=== PATIENT | female | born 1975 | race Caucasian/White ===

== ENCOUNTER → 2017-01-22 | Outpatient (CLI) | payer MEDICARE, SELFPAY ==
[2017-01-22 12:56] LABS: CHLORIDE,CL 109 mmol/L (98-110); SODIUM,NA 142 mmol/L (136-146)
== END ==
LOC: MW.CHFP 11:10
PROVIDERS: ATTEND Emergency Medicine
DX: R00.2 Palpitations (principal)
CPT/HCPCS: 36415; 80048; 84443; 85027; 93005; 93225; G0463

== ENCOUNTER 2017-02-18 14:56 | Emergency (ER) | payer MEDICARE, SELFPAY ==
--- NOTE | 2017-02-18 15:10 | EDM.PDOC ---
ED HPI NEURO - General Chief Complaint: Neurological Problem Stated Complaint: FALL Time Seen by Provider: 02/18/17 14:59 - History of Present Illness INITIAL COMMENTS - FREE TEXT/NARRATIVE: History of present illness: [41-year-old female with history of Arnold chiari syndrome states she fell on her head while walking 3 days ago. She felt lightheaded. She has headache and neck pain where she took motrin without relief. she has nausea and vomiting x 1 with blurry vision. She did not lose consciousness. She denies numbness, tingling, parasthesia, fever, chills, diarrhea, dysuria, frequency, urgecy, urine or bladder incontinence. ] Review of systems: As per history of present illness and below otherwise all systems reviewed and negative. Past medical history: As per history of present illness and as reviewed below otherwise noncontributory. Surgical history: As per history of present illness and as reviewed below otherwise noncontributory. Social history: No reported history of drug or alcohol abuse. Family history: As per history of present illness and as reviewed below otherwise noncontributory. Physical exam: General: Well developed, well nourished in NAD HEENT: Atraumatic, normocephalic, pupils reactive, negative for conjunctival pallor or scleral icterus, mucous membranes moist, throat clear, neck supple, nontender, trachea midline. Lungs: Clear to auscultation, breath sounds equal bilaterally, chest nontender. Heart: S1S2, regular, negative for clicks, rubs, or JVD. Abdomen: Soft, nondistended, nontender. Negative for masses or hepatosplenomegaly. Negative for costovertebral tenderness. Pelvis: Stable nontender. Genitourinary: Deferred. Rectal: Deferred. Extremities: Atraumatic, negative for cords or calf pain. Neurovascular unremarkable. Neuro: Awake, alert, oriented. Cranial nerves II through XII unremarkable. Cerebellum unremarkable. Motor and sensory unremarkable throughout. Exam nonfocal. Diagnostics: [Head and neck CT without contrast] Therapeutics: [Toradol IM] Impression: [Head/neck strain/sprain] Plan: [continue motrin advised to rest and have son monitor her. Return to ED if no improvement ] Definitive disposition and diagnosis as appropriate pending reevaluation and review of above. - Related Data Allergies/ADRs: Allergies Allergy/AdvReac Type Severity Reaction Status Date / Time No Known Allergies Allergy Verified 02/18/17 15:09 Home Meds: Home Meds Ondansetron [Zofran ODT] 4 mg PO Q6H PRN #20 tab.dis 03/28/15 [Rx] Gabapentin [Neurontin] 2 cap PO BEDTIME 01/31/16 [History] hydrOXYzine HCl [Atarax] 1 tab PO TID 01/31/16 [History] oxyCODONE HCl [Oxycodone HCl] 0.5 - 1 tab PO Q6H PRN 01/31/16 [History] Orphenadrine [Norflex] 1 tab PO TID PRN 02/18/17 [History] Past Medical History HEENT History: Reports: None Cardiovascular History: Reports: Arrhythmia Other Cardiovascular History: hx of arrythmia after feeding tube insertion Respiratory History: Reports: None Gastrointestinal History: Reports: GERD Genitourinary History: Reports: None 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: Musculoskeletal History: Reports: Back pain, chronic Other Musculoskeletal History: being checked for Fibromyalgia Neurological History: Reports: Migraines Psychiatric History: Reports: Anxiety, Depression Endocrine/Metabolic History: Reports: None Hematologic History: Reports: None Immunologic History: Reports: None Oncologic (Cancer) History: Reports: None Dermatologic History: Reports: None - Infectious Disease History Infectious Disease History: Reports: None - Past Surgical History Head Surgeries/Procedures: Reports: None HEENT Surgical History: Reports: None Cardiovascular Surgical History: Reports: None Respiratory Surgical History: Reports: None GI Surgical History: Reports: Bariatric procedure, Cholecystectomy, EGD, Esophageal dilatation, Other (see below) Other GI Surgeries/Procedures: Exploratory Laparotomy, feeding tube inserted, feeding tube removed Female Surgical History: Reports: section, Hysterectomy, Tubal ligation Endocrine Surgical History: Reports: None Neurological Surgical History: Reports: None Musculoskeletal Surgical History: Reports: Arthroscopic knee, Carpal tunnel Oncologic Surgical History: Reports: None Dermatological Surgical History: Reports: None Social & Family History - Tobacco Use Smoking Status *Q: Never Smoker Second Hand Smoke Exposure: No - Alcohol Use Days Per Week of Alcohol Use: 0 - Recreational Drug Use Recreational Drug Use: No Drug Use in Last 12 Months: No ED ROS GENERAL - Review of Systems Review Of Systems: See Below (See history of present illness) ED EXAM, NEURO - Physical Exam Exam: See Below (See history of present illness) Course - Vital Signs Last Recorded V/S: Last Vital Signs Temp 99.2 F 02/18/17 15:07 Pulse 87 02/18/17 15:07 Resp 16 02/18/17 15:07 BP 124/58 L 02/18/17 15:07 Pulse Ox 97 02/18/17 15:07 - Orders/Labs/Meds Meds: Medications Discontinued Medications Generic Name Dose Route Start Last Admin Trade Name Shey PRN Reason Stop Dose Admin Ketorolac Tromethamine 30 mg 02/18/17 16:16 Toradol IM 02/18/17 16:17 ONETIME ONE Ondansetron HCl 4 mg 02/18/17 15:18 02/18/17 15:26 Zofran Odt PO 02/18/17 15:19 4 mg ONETIME ONE Administration Departure - Departure Time of Disposition: 16:19 Disposition: Home, Self-Care 01 Condition: good Clinical Impression: Fall Referrals: PCP,None [Primary Care Provider] - Forms: ED Department Discharge Additional Instructions: The following information is given to patients seen in the emergency department who are being discharged to home. This information is to outline your options for follow-up care. We provide all patients seen in our emergency department with a follow-up referral. The need for follow-up, as well as the timing and circumstances, are variable depending upon the specifics of your emergency department visit. If you don't have a primary care physician on staff, we will provide you with a referral. We always advise you to contact your personal physician following an emergency department visit to inform them of the circumstance of the visit and for follow-up with them and/or the need for any referrals to a consulting specialist. The emergency department will also refer you to a specialist when appropriate. This referral assures that you have the opportunity for follow-up care with a specialist. All of these measure are taken in an effort to provide you with optimal care, which includes your follow-up. Under all circumstances we always encourage you to contact your private physician who remains a resource for coordinating your care. When calling for follow-up care, please make the office aware that this follow-up is from your recent emergency room visit. If for any reason you are refused follow-up, please contact the [facility] Emergency Department at and asked to speak to the emergency department charge nurse.
[2017-02-18] MEDS ORDERED: Ondansetron 4 MG Tab.DIS PO ONE (15:18)
--- NOTE | 2017-02-18 16:11 | CT ---
EXAMINATION: CT cervical spine HISTORY: Fall COMPARISON: Radiographs dated 09/02/2016 TECHNIQUE: Axial CT images obtained through the cervical spine without contrast. Coronal and sagitta l reconstructions obtained. FINDINGS: The cervical spinal alignment is normal. The vertebral body heights and disc spaces appear well-maintained. Bone mineralization is normal. The paravertebral soft tissues are unremarkable. Annabelle ng apices are clear. IMPRESSION: No acute cervical spinal abnormality identified.
--- NOTE | 2017-02-18 16:13 | CT ---
EXAMINATION: Non contrast CT head. Coronal and sagittal reformats. HISTORY: Pain FINDINGS: No evidence of intra or extra axial hemorrhage, mass, midline shift, hydrocephalus or edema. No hypoattenuation changes in the major vascular territories to suggest acute infarct. No abnormal intracranial calcifications are detected. No evidence of substantial vascular calcifica tions. Paranasal sinuses and mastoid air cells are well aerated without substantial findings. The orbits a nd globes appear normal. Pituitary fossa appears unremarkable. Calvarium is intact. No evidence of skull fracture. IMPRESSION: No acute intracranial findings.
[2017-02-18] MEDS ORDERED: Ketorolac 30 MG/ML SDV IM ONE (16:16)
[2017-02-18 17:02] VITALS: BP 121/72
== END 2017-02-18 16:59 | disposition home or self-care (01) ==
LOC: MW.ED 14:56
DX: S16.1XXA Strain of muscle, fascia and tendon at neck level, initial encounter (principal); S09.11XA Strain of muscle and tendon of head, initial encounter; S13.9XXA Sprain of joints and ligaments of unspecified parts of neck, initial encounter; S03.9XXA Sprain of joints and ligaments of unspecified parts of head, initial encounter; K21.9 Gastro-esophageal reflux disease without esophagitis; F41.8 Other specified anxiety disorders; Z90.49 Acquired absence of other specified parts of digestive tract; Z98.890 Other specified postprocedural states; Z98.84 Bariatric surgery status; Z90.710 Acquired absence of both cervix and uterus; W19.XXXA Unspecified fall, initial encounter; Q07.00 Arnold-Chiari syndrome without spina bifida or hydrocephalus
CPT/HCPCS: 70450; 72125; 96372; 99284; A9270; J1885; 99283

== ENCOUNTER → 2017-03-02 | Outpatient (CLI) | payer MEDICARE, SELFPAY ==
[2017-03-02 16:54] LABS: CHLORIDE,CL 107 mmol/L (98-110); SODIUM,NA 141 mmol/L (136-146)
== END ==
LOC: MW.CHIM 16:12
PROVIDERS: ATTEND Internal Medicine
DX: R19.8 Other specified symptoms and signs involving the digestive system and abdomen (principal); K92.0 Hematemesis; F19.90 Other psychoactive substance use, unspecified, uncomplicated; G44.309 Post-traumatic headache, unspecified, not intractable
CPT/HCPCS: 36415; 80053; 83540; 85025; 85652; 86140; 99214

== ENCOUNTER → 2017-03-05 | Outpatient (CLI) | payer MEDICARE, MEDICAID, SELFPAY ==
--- NOTE | 2017-03-05 11:15 | US ---
EXAMINATION: Limited abdominal ultrasound HISTORY: Also the left lower abdomen COMPARISON: CT dated 05/20/2016 TECHNIQUE: Grayscale and color Doppler images obtained of the aorta and left lower quadrant. FINDINGS: The aorta is normal in caliber measuring 1.6 cm proximally, 1.7 cm at the midpoint, and 1. 5 cm distally. The iliac arteries measure between 7 and 9 mm. Normal color Doppler flow with scatter ed atheromatous disease is noted within the aorta. No sonographic abnormalities noted within the are a of concern. IMPRESSION: 1. No evidence of an abdominal aortic aneurysm.
== END ==
LOC: MW.US 09:05
PROVIDERS: ATTEND Internal Medicine
DX: R19.8 Other specified symptoms and signs involving the digestive system and abdomen (principal)
CPT/HCPCS: 76700-26; 76775; 76775-26

== ENCOUNTER → 2017-03-09 | Outpatient (CLI) | payer MEDICARE, MEDICAID | LOC: MW.CHIM 08:00 | PROVIDERS: ATTEND Internal Medicine | DX: R10.9 Unspecified abdominal pain (principal); G89.29 Other chronic pain; G44.309 Post-traumatic headache, unspecified, not intractable; G93.5 Compression of brain | CPT/HCPCS: G0463 ==

== ENCOUNTER → 2017-03-20 | Outpatient (CLI) | payer MEDICARE, SELFPAY | LOC: MW.CHGS 08:00 | PROVIDERS: ATTEND Surgery | DX: R10.9 Unspecified abdominal pain (principal); G89.29 Other chronic pain; Z98.84 Bariatric surgery status | CPT/HCPCS: 99214 ==

== ENCOUNTER → 2017-03-30 | Outpatient (CLI) | payer MEDICARE, SELFPAY | LOC: MW.CHFP 08:00 | PROVIDERS: ATTEND Emergency Medicine | DX: H81.90 Unspecified disorder of vestibular function, unspecified ear (principal); R42 Dizziness and giddiness | CPT/HCPCS: G0463 ==

== ENCOUNTER → 2017-03-31 | Outpatient (CLI) | payer MEDICARE, MEDICAID, OTHER | LOC: MW.CHNEURO 08:00 | PROVIDERS: ATTEND Psychiatry & Neurology Neuromuscular Medicine | DX: G43.719 Chronic migraine without aura, intractable, without status migrainosus (principal); G93.5 Compression of brain; M54.2 Cervicalgia | CPT/HCPCS: 99214 ==

== ENCOUNTER 2017-09-28 21:34 | Emergency (ER) | payer MEDICARE, MEDICAID ==
--- NOTE | 2017-09-28 21:51 | EDM.PDOC ---
<Jayjay Barnett - Last Filed: 09/28/17 22:59> ED HPI GENERAL MEDICAL PROBLEM - General Chief Complaint: Neuro Symptoms/Deficits Stated Complaint: AMBULANCE Time Seen by Provider: 09/28/17 21:43 - History of Present Illness INITIAL COMMENTS - FREE TEXT/NARRATIVE: Labs were unremarkable CT shows no changes in her prior Chiari I malformation ventricles are without enlargement or any other significant changes I discussed with patient admission for observation in light of her symptoms and presentation patient declines she states she will follow-up primary medical doctor return as needed as discussed or any problems impression is #1 generalized weakness #2 history of Arnold-Chiari malformation #3 palpitations - Related Data Allergies Allergy/AdvReac Type Severity Reaction Status Date / Time No Known Allergies Allergy Verified 09/28/17 21:47 Home Meds: Home Meds Ondansetron [Zofran ODT] 4 mg PO Q6H PRN #20 tab.dis 03/28/15 [Rx] Gabapentin [Neurontin] 2 cap PO BEDTIME 01/31/16 [History] hydrOXYzine HCl [Atarax] 25 mg PO TID 01/31/16 [History] oxyCODONE HCl [Oxycodone HCl] 0.5 - 1 tab PO Q6H PRN 01/31/16 [History] Course - Vital Signs Last Recorded V/S: Last Vital Signs Temp 37.1 C 09/28/17 21:39 Pulse 62 09/28/17 23:10 Resp 18 09/28/17 23:10 BP 114/45 L 09/28/17 23:10 Pulse Ox 97 09/28/17 23:10 - Orders/Labs/Meds Labs: Laboratory Tests 09/28/17 09/28/17 Range/Units 21:48 21:48 WBC 8.52 (4.0-11.0) K/uL RBC 4.43 (4.30-5.90) M/uL Hgb 12.9 (12.0-16.0) g/dL Hct 37.4 (36.0-46.0) % MCV 84.4 (80.0-98.0) fL MCH 29.1 (27.0-32.0) pg MCHC 34.5 (31.0-37.0) g/dL RDW Std Deviation 39.1 (28.0-62.0) fl RDW Coeff of Jose Juan 13 (11.0-15.0) % Plt Count 297 (150-400) K/uL MPV 9.30 (7.40-12.00) fL Neut % (Auto) 50.8 (48.0-80.0) % Lymph % (Auto) 38.8 (16.0-40.0) % [place] % (Auto) 8.0 (0.0-15.0) % Eos % (Auto) 1.9 (0.0-7.0) % Baso % (Auto) 0.5 (0.0-1.5) % Neut # (Auto) 4.3 (1.4-5.7) K/uL Lymph # (Auto) 3.3 H (0.6-2.4) K/uL [place] # (Auto) 0.7 (0.0-0.8) K/uL Eos # (Auto) 0.2 (0.0-0.7) K/uL Baso # (Auto) 0.0 (0.0-0.1) K/uL Nucleated RBC % 0.0 /100WBC Nucleated RBCs # 0 K/uL Sodium 140 (136-146) mmol/L Potassium 4.2 (3.5-5.1) mmol/L Chloride 109 (98-110) mmol/L Carbon Dioxide 24 (21-31) mmol/L BUN 11 (6.0-23.0) mg/dL Creatinine 0.7 (0.6-1.5) mg/dL Est Cr Clr Drug Dosing 90.41 mL/min Estimated GFR (MDRD) > 60.0 ml/min Glucose 96 (60-110) mg/dL Calcium 9.0 (8.8-10.8) mg/dL Total Bilirubin 0.3 (0.1-1.5) mg/dL AST 16 (5-40) IU/L ALT 13 (8-54) IU/L Alkaline Phosphatase 60 (40-150) Troponin I < 0.10 (0.0-0.29) NG/ML Total Protein 6.3 (6.0-8.0) g/dL Albumin 4.0 (3.5-5.0) g/dL Globulin 2.3 (2.0-3.5) g/dL Albumin/Globulin Ratio 1.7 (1.3-2.8) Meds: Medications Discontinued Medications Generic Name Dose Route Start Last Admin Trade Name Shey PRN Reason Stop Dose Admin Sodium Chloride 1,000 mls @ 150 mls/hr 09/28/17 22:15 09/28/17 22:26 Normal Saline IV 150 mls/hr ASDIRECTED WENDIE Administration Departure - Departure Time of Disposition: 23:01 Disposition: Home, Self-Care 01 Condition: Good Clinical Impression: Arnold-Chiari malformation, Weakness, Palpitations - Discharge Information Instructions: Chiari Malformation, Palpitations, [id number] Referrals: PCP,None [Primary Care Provider] - Forms: ED Department Discharge Additional Instructions: The following information is given to patients seen in the emergency department who are being discharged to home. This information is to outline your options for follow-up care. We provide all patients seen in our emergency department with a follow-up referral. The need for follow-up, as well as the timing and circumstances, are variable depending upon the specifics of your emergency department visit. If you don't have a primary care physician on staff, we will provide you with a referral. We always advise you to contact your personal physician following an emergency department visit to inform them of the circumstance of the visit and for follow-up with them and/or the need for any referrals to a consulting specialist. The emergency department will also refer you to a specialist when appropriate. This referral assures that you have the opportunity for followup care with a specialist. All of these measure are taken in an effort to provide you with optimal care, which includes your followup. Under all circumstances we always encourage you to contact your private physician who remains a resource for coordinating your care. When calling for followup care, please make the office aware that this follow-up is from your recent emergency room visit. If for any reason you are refused follow-up, please contact the [facility] emergency department at and asked to speak to the emergency department charge nurse. Follow-up primary medical doctor 1-2 days return as needed as discussed <Jyothi Soliman E - Last Filed: 09/30/17 13:43> ED HPI GENERAL MEDICAL PROBLEM - General Source of Information: Reports: Patient History Limitations: Reports: No Limitations - History of Present Illness INITIAL COMMENTS - FREE TEXT/NARRATIVE: HISTORY AND PHYSICAL: History of present illness: Patient is a 42-year-old female who presents to the emergency room via EMS with complaints of jaw pain, diaphoresis, generalized weakness and palpitations. She reports that she was resting in her recliner and watching TV she started to have pain in her jaw which did not radiate. She soon felt some palpitations and became diaphoretic. The palpitations and diaphoresis resolved and she continued to feel the pain in her jaw and had some generalized weakness. Does state she has a mild headache, reports that she normally has headaches routinely. Denies any facial droop, change in vision, localized weakness or slurred speech. Denies any recent head injury or trauma. Has a history of Chiari malformation. States she has not had any head CTs in the last year. She reports that she does a surgery but has been putting this off as she is fearful of the actual procedure. Review of systems: As per history of present illness and below otherwise all systems reviewed and negative. Past medical history: As per history of present illness and as reviewed below otherwise noncontributory. Surgical history: As per history of present illness and as reviewed below otherwise noncontributory. Social history: No reported history of drug or alcohol abuse. Family history: As per history of present illness and as reviewed below otherwise noncontributory. Physical exam: Gen.: Nontoxic appearing 42-year-old female. Well-developed and well-nourished. Alert and oriented. HEENT: Atraumatic, normocephalic, pupils reactive bilaterally, negative for conjunctival pallor or scleral icterus, mucous membranes moist, throat clear, neck supple, nontender, trachea midline. Lungs: Clear to auscultation, breath sounds equal bilaterally, chest nontender. Heart: S1S2, regular rate and rhythm Abdomen: Soft, nondistended, nontender. Negative for masses or hepatosplenomegaly. Negative for costovertebral tenderness. Pelvis: Stable nontender. Genitourinary: Deferred. Rectal: Deferred. Extremities: Atraumatic, negative for cords or calf pain. Neurovascular unremarkable. Neuro: Awake, alert, oriented. Cranial nerves II through XII unremarkable. Cerebellum unremarkable. Motor and sensory unremarkable throughout. Exam nonfocal. No neurological deficits noted. Equal strength to upper and lower extremities bilaterally. Signed off this patient to Dr. Barnett at 2200. He will review the lab results and imaging. Diagnostics: CBC, CMP, troponin, EKG, one view chest, head CT, UA Therapeutics: IV fluid Impression: [] Plan: [] Definitive disposition and diagnosis as appropriate pending reevaluation and review of above. 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: Musculoskeletal History: Reports: Back Pain, Chronic Other Musculoskeletal History: being checked for Fibromyalgia Neurological History: Reports: Migraines Psychiatric History: Reports: Anxiety, Depression Endocrine/Metabolic History: Reports: None Hematologic History: Reports: None Immunologic History: Reports: None Oncologic (Cancer) History: Reports: None Dermatologic History: Reports: None - Infectious Disease History Infectious Disease History: Reports: None - Past Surgical History GI Surgical History: Reports: Bariatric Procedure, Cholecystectomy, EGD, Esophageal Dilatation, Other (See Below) Female Surgical History: Reports: Section, Hysterectomy, Tubal Ligation Musculoskeletal Surgical History: Reports: Arthroscopic Knee, Carpal Tunnel Social & Family History - Family History Family Medical History: Noncontributory - Tobacco Use Smoking Status *Q: Never Smoker Second Hand Smoke Exposure: No - Alcohol Use Days Per Week of Alcohol Use: 0 - Recreational Drug Use Recreational Drug Use: No Drug Use in Last 12 Months: No ED ROS GENERAL - Review of Systems Review Of Systems: ROS reveals no pertinent complaints other than HPI. ED EXAM, NEURO - Physical Exam Exam: See Below (See dictation) Course - Vital Signs Last Recorded V/S: Last Vital Signs Temp 37.1 C 09/28/17 21:39 Pulse 62 09/28/17 23:10 Resp 18 09/28/17 23:10 BP 114/45 L 09/28/17 23:10 Pulse Ox 97 09/28/17 23:10 - Orders/Labs/Meds Labs: Laboratory Tests 09/28/17 09/28/17 Range/Units 21:48 21:48 WBC 8.52 (4.0-11.0) K/uL RBC 4.43 (4.30-5.90) M/uL Hgb 12.9 (12.0-16.0) g/dL Hct 37.4 (36.0-46.0) % MCV 84.4 (80.0-98.0) fL MCH 29.1 (27.0-32.0) pg MCHC 34.5 (31.0-37.0) g/dL RDW Std Deviation 39.1 (28.0-62.0) fl RDW Coeff of Jose Juan 13 (11.0-15.0) % Plt Count 297 (150-400) K/uL MPV 9.30 (7.40-12.00) fL Neut % (Auto) 50.8 (48.0-80.0) % Lymph % (Auto) 38.8 (16.0-40.0) % [place] % (Auto) 8.0 (0.0-15.0) % Eos % (Auto) 1.9 (0.0-7.0) % Baso % (Auto) 0.5 (0.0-1.5) % Neut # (Auto) 4.3 (1.4-5.7) K/uL Lymph # (Auto) 3.3 H (0.6-2.4) K/uL [place] # (Auto) 0.7 (0.0-0.8) K/uL Eos # (Auto) 0.2 (0.0-0.7) K/uL Baso # (Auto) 0.0 (0.0-0.1) K/uL Nucleated RBC % 0.0 /100WBC Nucleated RBCs # 0 K/uL Sodium 140 (136-146) mmol/L Potassium 4.2 (3.5-5.1) mmol/L Chloride 109 (98-110) mmol/L Carbon Dioxide 24 (21-31) mmol/L BUN 11 (6.0-23.0) mg/dL Creatinine 0.7 (0.6-1.5) mg/dL Est Cr Clr Drug Dosing 90.41 mL/min Estimated GFR (MDRD) > 60.0 ml/min Glucose 96 (60-110) mg/dL Calcium 9.0 (8.8-10.8) mg/dL Total Bilirubin 0.3 (0.1-1.5) mg/dL AST 16 (5-40) IU/L ALT 13 (8-54) IU/L Alkaline Phosphatase 60 (40-150) Troponin I < 0.10 (0.0-0.29) NG/ML Total Protein 6.3 (6.0-8.0) g/dL Albumin 4.0 (3.5-5.0) g/dL Globulin 2.3 (2.0-3.5) g/dL Albumin/Globulin Ratio 1.7 (1.3-2.8) Meds: Medications Discontinued Medications Generic Name Dose Route Start Last Admin Trade Name Freq PRN Reason Stop Dose Admin Sodium Chloride 1,000 mls @ 150 mls/hr 09/28/17 22:15 09/28/17 22:26 Normal Saline IV 150 mls/hr ASDIRECTED WENDIE Administration
[2017-09-28] MEDS ORDERED: Sodium Chloride 0.9% 1,000 ML IV SCH (22:15)
[2017-09-28 22:17] LABS: CHLORIDE,CL 109 mmol/L (98-110); SODIUM,NA 140 mmol/L (136-146)
[2017-09-28 23:13] VITALS: BP 114/45
--- NOTE | 2017-09-29 11:00 | CR ---
EXAM DATE: 09/28/17 PATIENT'S AGE: 42 Patient: FAUSTINO MADRIGAL Facility: [place], [place] Site . Site : 1975 Study: XRay Chest [id number]/6/2017 10:09:17 PM Ordering Physician: Doctor Cano Final Report: INDICATION: facial numbness, weakness, h/o Kiarie malformation TECHNIQUE: Chest radiograph 1 view COMPARISON: None FINDINGS: Cardiovascular and mediastinum: The cardiac silhouette is normal in appearance and size. Mediastinum is within normal limits. Lungs and pleural spaces: Both lungs are unremarkable in appearance. No sign of pleural effusion. No pneumothorax is seen. Bones and soft tissues: No significant findings. IMPRESSION: 1. No acute cardiopulmonary disease seen. Dictated by: Prabhakar Lamar MD @ 09/28/2017 22:24:22 (Electronic Signature) Report Signed by Proxy. MOISÉS
--- NOTE | 2017-09-29 11:01 | CT ---
EXAM DATE: 09/28/17 PATIENT'S AGE: 42 Patient: FAUSTINO MADRIGAL Facility: [place], [place] Site . Site : 1975 Study: CT Head [id number]`-09/28/2017 10:15:13 PM Ordering Physician: Doctor Cano Final Report: INDICATION: Facial numbness, weakness, history of Chiari 1 malformation TECHNIQUE: CT head without contrast. COMPARISON: 02/18/2017 FINDINGS: CSF spaces: Within normal limits for age. Brain parenchyma: The horner-white differentiation is normal. No sign of mass, hemorrhage, or midline shift. Chiari 1 malformation again noted. Skull base and calvarium: The visualized paranasal sinuses and mastoid air cells demonstrate no acute or significant findings. The visualized orbits are grossly unremarkable. No skull fractures. IMPRESSION: No acute intracranial abnormalities. Redemonstration of patient`s known Chiari type 1 malformation. No change in size of the ventricles compared to prior study. Dictated by yAad Sanderson MD @ 09/28/2017 10:33:08 PM Dictated by: Ayad Sanderson MD @ 09/28/2017 22:33:15 (Electronic Signature) Report Signed by Proxy. MOISÉS
== END 2017-09-28 23:10 | disposition home or self-care (01) ==
LOC: MW.ED 21:34
DX: Q07.00 Arnold-Chiari syndrome without spina bifida or hydrocephalus (principal); R53.1 Weakness; R00.2 Palpitations
CPT/HCPCS: 36415; 70450; 71010; 80053; 84484; 85025; 96360; 99285; J7040; 93005; 99282

== ENCOUNTER 2020-07-14 10:07 | Emergency (ER) | payer MEDICARE, MEDICAID ==
--- NOTE | 2020-07-14 10:24 | EDM.PDOC ---
ED HPI GENERAL MEDICAL PROBLEM - General Chief Complaint: Abdominal Pain Stated Complaint: STOMACH BACK AND SPINE PAINFUL Time Seen by Provider: 07/14/20 10:09 Source of Information: Reports: Patient History Limitations: Reports: No Limitations - History of Present Illness INITIAL COMMENTS - FREE TEXT/NARRATIVE: HISTORY AND PHYSICAL: History of present illness: Patient is a 45-year-old female who presents to the emergency room with complaints of left lower abdominal pain. She reports that she has had intermittent abdominal pain over the past 5 years but over the past month and a half it has been more persistent. Pain is located in the left lower abdomen and is associated with nausea and constipation. Has a decrease in appetite and poor oral intake. Eating causes increased pain. She has a history of gastric bypass in 2013, denies any significant complications related to this procedure. She also reports having to have scar tissue removed from her esophagus frequently. She does have an appointment with a GI specialist in [place] on 07/19/2020, for an endoscopy and colonoscopy. Has been taking her oxycodone and Lyrica for her chronic back pain but states "it has not touched my abdominal pain" and reports she is "miserable". Attempted to call her primary care provider, Dr. Allen, who recommended she come to the emergency room for reevaluation. Patient states with her constipation and left low abdominal pain she is concerned she has a "blockage". Unable to tell me when her last bowel movement was. Past medical history of arrhythmia, chronic back pain, Chiari I malformation, migraines, fibromyalgia, and gastric bypass. Review of systems: As per history of present illness and below otherwise all systems reviewed and negative. Past medical history: As per history of present illness and as reviewed below otherwise noncontributory. Surgical history: As per history of present illness and as reviewed below otherwise noncontributory. Social history: See social history for further information Family history: As per history of present illness and as reviewed below otherwise noncontributory. Physical exam: General: Well developed and well nourished 45-year-old female. Alert and orientated x 3. Nontoxic in appearance and in no acute distress. Vital signs are stable and have been reviewed by me. Nursing notes were reviewed. HEENT: Atraumatic, normocephalic, pupils equal and reactive bilaterally, negative for conjunctival pallor or scleral icterus, mucous membranes moist, throat clear, neck supple, nontender, trachea midline. No drooling or trismus noted. No meningeal signs. No hot potato voice noted. Lungs: Clear to auscultation, breath sounds equal bilaterally, chest nontender. Normal work of breathing, no accessory muscles used. Heart: S1S2, regular rate and rhythm without overt murmur Abdomen: Soft, nondistended, left/right lower abdominal tenderness without rebound tenderness. Negative for masses or costovertebral tenderness. Pelvis: Stable nontender. Skin: Intact, warm, dry. No lesions or rashes noted. Hematologic: No petechiae or purpra. Mucosa appropriate color and normal nail bed color and refill. Extremities: Atraumatic, moves all extremities per self without difficulty or deficits. Neurovascular unremarkable. Neuro: Awake, alert, oriented. Cranial nerves II through XII unremarkable. Cerebellum unremarkable. Motor and sensory unremarkable throughout. Exam nonfocal. Psychiatric: Mood and affect are appropriate. Normal thought process. Answering questions appropriately. Notes: Lab work is unremarkable. CT shows nonobstructive bowel gas pattern. Moderate amount of stool is identified within the colon. No other acute findings are noted. She does have an appointment next week with the GI specialist. Upon reevaluation she is appropriate for discharge. We discussed signs and symptoms that would prompt them to return to the Emergency Department. Medication, follow up and supportive care measures were reviewed and discussed. Voices understanding and is agreeable to plan of care. Denies any further questions or concerns at this time. Diagnostics: CBC, CMP, UA, lipase, CT abdomen and pelvis Therapeutics: IV fluids, Dilaudid Prescription: None Impression: Abdominal pain Constipation Plan: 1. Today your lab work was normal. We always encourage you to follow up with your primary care provider or recommended specialist in the next few days for re-evaluation and further care/management. If your symptoms should worsen, new symptoms develop or any of the signs and symptoms we discussed should arise please return to the emergency room or call 911 (if needed). 2. Try to add a stool softener like Colace or Miralax to your regiment to help with constipation. 3. Follow up with the GI specialist that you already have arranged. Definitive disposition and diagnosis as appropriate pending reevaluation and review of above. abd Pain Score (Numeric/FACES): 9 - Related Data Allergies Allergy/AdvReac Type Severity Reaction Status Date / Time No Known Allergies Allergy Verified 07/14/20 10:24 Home Meds: Home Meds Ondansetron [Zofran ODT] 4 mg PO Q6H PRN #20 tab.dis 03/28/15 [Rx] Gabapentin [Neurontin] 2 cap PO BEDTIME 01/31/16 [History] hydrOXYzine HCl [Atarax] 25 mg PO TID 01/31/16 [History] oxyCODONE HCl [Oxycodone HCl] 0.5 - 1 tab PO Q6H PRN 01/31/16 [History] Butalb/Acetaminophen/Caffeine [Ytiqat-Mfozpbwk-Zfxc 50-325-40] 2 tab PO Q6HR 07/14/20 [History] Pregabalin [Lyrica] 300 mg PO DAILY 07/14/20 [History] Past Medical History HEENT History: Reports: None Cardiovascular History: Reports: Arrhythmia Other Cardiovascular History: hx of arrythmia after feeding tube insertion Respiratory History: Reports: None Gastrointestinal History: Reports: GERD Genitourinary History: Reports: None [employer] History: Reports: Musculoskeletal History: Reports: Back Pain, Chronic Other Musculoskeletal History: being checked for Fibromyalgia Neurological History: Reports: Migraines Psychiatric History: Reports: Anxiety, Depression Endocrine/Metabolic History: Reports: None Hematologic History: Reports: None Immunologic History: Reports: None Oncologic (Cancer) History: Reports: None Dermatologic History: Reports: None - Infectious Disease History Infectious Disease History: Reports: None - Past Surgical History GI Surgical History: Reports: Bariatric Procedure, Cholecystectomy, EGD, Esophageal Dilatation, Other (See Below) Female Surgical History: Reports: Section, Hysterectomy, Tubal Ligation Musculoskeletal Surgical History: Reports: Arthroscopic Knee, Carpal Tunnel Social & Family History - Family History Family Medical History: Noncontributory - Caffeine Use Caffeine Use: Reports: Coffee ED ROS GENERAL - Review of Systems Review Of Systems: Comprehensive ROS is negative, except as noted in HPI. ED EXAM, GI/ABD - Physical Exam Exam: See Below (See dictation) Course - Vital Signs Last Recorded V/S: Last Vital Signs Temp 98.0 F 07/14/20 10:20 Pulse 81 07/14/20 10:20 Resp 16 07/14/20 10:20 BP 118/85 07/14/20 10:20 Pulse Ox 100 08/22/20 10:20 - Orders/Labs/Meds Labs: Laboratory Tests 07/14/20 07/14/20 07/14/20 Range/Units 10:40 10:40 10:59 WBC 5.75 (4.0-11.0) K/uL RBC 4.14 L (4.30-5.90) M/uL Hgb 9.8 L (12.0-16.0) g/dL Hct 32.0 L (36.0-46.0) % MCV 77.3 L (80.0-98.0) fL MCH 23.7 L (27.0-32.0) pg MCHC 30.6 L (31.0-37.0) g/dL RDW Std Deviation 40.3 (28.0-62.0) fl RDW Coeff of Jose Juan 14 (11.0-15.0) % Plt Count 561 H (150-400) K/uL MPV 8.80 (7.40-12.00) fL Neut % (Auto) 57.8 (48.0-80.0) % Lymph % (Auto) 31.1 (16.0-40.0) % [place] % (Auto) 7.5 (0.0-15.0) % Eos % (Auto) 2.4 (0.0-7.0) % Baso % (Auto) 1.2 (0.0-1.5) % Neut # (Auto) 3.3 (1.4-5.7) K/uL Lymph # (Auto) 1.8 (0.6-2.4) K/uL [place] # (Auto) 0.4 (0.0-0.8) K/uL Eos # (Auto) 0.1 (0.0-0.7) K/uL Baso # (Auto) 0.1 (0.0-0.1) K/uL Nucleated RBC % 0.0 /100WBC Nucleated RBCs # 0 K/uL Sodium 139 (136-145) mmol/L Potassium 4.0 (3.5-5.1) mmol/L Chloride 105 (98-107) mmol/L Carbon Dioxide 25.3 (21.0-32.0) mmol/L BUN 14 (7.0-18.0) mg/dL Creatinine 1.0 (0.6-1.0) mg/dL Est Cr Clr Drug Dosing 63.93 mL/min Estimated GFR (MDRD) 60.0 ml/min Glucose 86 (74-106) mg/dL Calcium 8.6 (8.5-10.1) mg/dL Total Bilirubin 0.2 (0.2-1.0) mg/dL AST 18 (15-37) IU/L ALT 18 (14-63) IU/L Alkaline Phosphatase 83 (46-116) U/L Total Protein 6.1 L (6.4-8.2) g/dL Albumin 3.1 L (3.4-5.0) g/dL Globulin 3.0 (2.6-4.0) g/dL Albumin/Globulin Ratio 1.0 (0.9-1.6) Lipase 87 (73-393) U/L Urine Color YELLOW Urine Appearance CLEAR Urine pH 6.0 (5.0-8.0) Ur Specific [place] 1.020 (1.001-1.035) Urine Protein NEGATIVE (NEGATIVE) mg/dL Urine Glucose (UA) NEGATIVE (NEGATIVE) mg/dL Urine Ketones NEGATIVE (NEGATIVE) mg/dL Urine Occult Blood NEGATIVE (NEGATIVE) Urine Nitrite NEGATIVE (NEGATIVE) Urine Bilirubin NEGATIVE (NEGATIVE) Urine Urobilinogen 0.2 (<2.0) EU/dL Ur Leukocyte Esterase NEGATIVE (NEGATIVE) Meds: Medications Discontinued Medications Generic Name Dose Route Start Last Admin Trade Name Freq PRN Reason Stop Dose Admin Hydromorphone HCl 1 mg 07/14/20 10:32 07/14/20 11:43 Dilaudid IVPUSH 07/14/20 10:33 1 mg ONETIME ONE Administration Sodium Chloride 1,000 mls @ 999 mls/hr 07/14/20 10:32 07/14/20 11:43 Normal Saline IV 07/14/20 11:32 999 mls/hr STAT ONE Administration Iopamidol 100 ml 07/14/20 11:44 07/14/20 11:45 Isovue Multipack-370 (76%) IVPUSH 07/14/20 11:45 100 ml ONETIME ONE Administration Departure - Departure Time of Disposition: 12:08 Disposition: Home, Self-Care 01 Clinical Impression: Abdominal pain Qualifiers: Abdominal location: left lower quadrant Qualified Code(s): R10.32 - Left lower quadrant pain Constipation Qualifiers: Constipation type: unspecified constipation type Qualified Code(s): K59.00 - Constipation, unspecified - Discharge Information Instructions: Constipation, Adult, [id number] Referrals: Ronald Allen MD [Primary Care Provider] - Forms: ED Department Discharge Additional Instructions: The following information is given to patients seen in the emergency department who are being discharged to home. This information is to outline your options for follow-up care. We provide all patients seen in our emergency department with a follow-up referral. The need for follow-up, as well as the timing and circumstances, are variable depending upon the specifics of your emergency department visit. If you don't have a primary care physician on staff, we will provide you with a referral. We always advise you to contact your personal physician following an emergency department visit to inform them of the circumstance of the visit and for follow-up with them and/or the need for any referrals to a consulting specialist. The emergency department will also refer you to a specialist when appropriate. This referral assures that you have the opportunity for follow-up care with a specialist. All of these measure are taken in an effort to provide you with optimal care, which includes your follow-up. Under all circumstances we always encourage you to contact your private physician who remains a resource for coordinating your care. When calling for follow-up care, please make the office aware that this follow-up is from your recent emergency room visit. If for any reason you are refused follow-up, please contact the [facility] Emergency Department at and asked to speak to the emergency department charge nurse. [facility] [address] [place] [address] [id number] [address] [address] Thank you for choosing the [facility] emergency department in [place] for your medical needs today. It was a pleasure caring for you. Today you were seen in the emergency department for abdominal pain and constipation. 1. Today your lab work was normal. The CT scan shows moderate amount of stool in the colon, nonobstructing. We always encourage you to follow up with your primary care provider or recommended specialist in the next few days for re- evaluation and further care/management. If your symptoms should worsen, new symptoms develop or any of the signs and symptoms we discussed should arise please return to the emergency room or call 911 (if needed). 2. Try to add a stool softener like Colace or Miralax to your regiment to help with constipation. 3. Follow up with the GI specialist that you already have arranged. Sepsis Event Note (ED) - Focused Exam Vital Signs: Vital Signs Temp Pulse Resp BP Pulse Ox 07/14/20 10:20 98.0 F 81 16 118/85 100
[2020-07-14] MEDS ORDERED: HYDROmorphone 1 MG/ML Syringe IVPUSH ONE (10:32)
[2020-07-14] MEDS ORDERED: Sodium Chloride 0.9% 1,000 ML IV ONE (10:32)
[2020-07-14 11:12] LABS: CARBON DIOXIDE,CO2 25.3 mmol/L (21.0-32.0)
[2020-07-14] MEDS ORDERED: Iopamidol 755 MG/ML 200 ML Multipack Bottle IVPUSH ONE (11:44)
--- NOTE | 2020-07-14 12:05 | CT ---
Indication: Left lower quadrant pain. Constipation. Technique: Multiple contiguous axial images were obtained from the lung bases through the symphysis pubis after the intravenous administration of 100 milliliters Isovue 370. Please note that all CT scans at this facility use dose modulation, iterative reconstruction, and/or weight-based dosing when appropriate to reduce radiation dose to as low as reasonably achievable. Comparison: May 20, 2016 Findings: The lung bases are clear. The heart is normal in size. No pericardial effusion is identified. The liver, spleen, pancreas, adrenals, and kidneys are normal. No intrahepatic biliary ductal dilatation is identified. Postsurgical changes of cholecystectomy are identified. No hydronephrosis is identified. Postsurgical changes of the stomach are identified. Postsurgical changes of the small bowel are identified in the left mid abdomen. The bowel gas pattern is nonobstructive. A moderate amount of stool is identified within the colon. In the pelvis, fluid is identified within the pelvis. The urinary bladder is normal. No definite uterus is identified. The ovaries are most likely present. No free air is identified within the abdomen or pelvis. The aorta is normal in caliber. Degenerative changes of the spine are identified. Impression: Nonobstructive bowel gas pattern. Moderate amount of stool identified within the colon. Minimal and free fluid identified within the pelvis. Postoperative changes of the stomach and small bowel. Postoperative changes of a cholecystectomy. Please note that all CT scans at this facility use dose modulation, iterative reconstruction, and/or weight-based dosing when appropriate to reduce radiation dose to as low as reasonably achievable. Dictated by Chelsey Sheldon MD @ Jul 14 2020 11:50AM Signed by Dr. Chelsey Sheldon @ Jul 14 2020 12:04PM
[2020-07-14 13:20] VITALS: BP 117/71; PULSE 82
== END 2020-07-14 12:51 | disposition home or self-care (01) ==
LOC: MW.ED 10:07
DX: K59.00 Constipation, unspecified (principal)
CPT/HCPCS: 36415; 74177; 80053; 81003; 83690; 85025; 96374; 99284; J1170; J7030; Q9967

== ENCOUNTER 2021-04-23 11:04 | Emergency (ER) | payer MEDICARE, MEDICAID ==
--- NOTE | 2021-04-23 11:55 | EDM.PDOC ---
ED HPI GENERAL MEDICAL PROBLEM - General Chief Complaint: Abdominal Pain Stated Complaint: lft side abdomin pain Time Seen by Provider: 04/23/21 11:08 - History of Present Illness INITIAL COMMENTS - FREE TEXT/NARRATIVE: History of present illness: [] Patient reports she has abdominal pain and headaches for 5 years. The headaches are unchanged from her prior with her Chiari malformation. She has seen neurosurgery and had an MRI last week the report from which is not back. She also has chronic abdominal pain for 5 years. She is able to eat and drink. She does not have any acute problem with her stool or urine. The patient does not have any fever or chills. The pain is sharp and worse in the left lower quadrant since she dumped her entire prescription of hydrocodone in the toilet because it had changed colors recently and she thought because it is a different manager party was not working as well as usual. She says her primary care doctor was unhappy that she did that. He has a primary care doctor Dr. Allen who manages her chronic pain. She also complains of bruises across her anterior pretibial surfaces from multiple falls. The falls are going on for 5 years with her Chiari malformation and and not new. She says she did not fall hard enough to break any bones. Review of systems: As per history of present illness and below otherwise all systems reviewed and negative. Past medical history: As per history of present illness and as reviewed below otherwise noncontributory. Surgical history: As per history of present illness and as reviewed below otherwise noncontributory. Social history: No reported history of drug or alcohol abuse. Family history: As per history of present illness and as reviewed below otherwise noncontributory. Physical exam: Constitutional -poor muscular development, quite thin, and in no acute distress HEENT - normocephalic, no evidence of trauma - external nose and mouth normal - no mass in neck and no JVD - mucosae moist EYES -eyes are relatively sunken in the sockets full EOM, PERRL, no icterus - no evidence of inflammation, injection, or drainage Respiratory - no respiratory distress, equal bilateral expansion, lungs clear to auscultation and no abnormal lung sounds Cardiovascular - Regular Rhythm with S1 and S2 appreciated and no murmur, gallop or rub. GI - abdomen soft without distension or organomegaly - normal bowel sounds - no guard or rebound Musculoskeletal no gross deformity of long bones or joints - no tenderness, swelling or edema Neurologic - Alert and oriented times four - CN II-XII grossly intact - motor sensory and coordination symmetrically normal Psychiatric - appropriate mood and affect with normal thought content Hematologic -extensive bruising in the pretibial surfaces of both lower legs.- mucosa appropriate color and sclera not pale - normal nail bed color and refill Integument - no rash or evidence of trauma - normal turgor Diagnostics: [] Therapeutics: [] Impression: [] Plan: [] Definitive disposition and diagnosis as appropriate pending reevaluation and review of above. LLQ Pain Score (Numeric/FACES): 10 - Related Data Allergies Allergy/AdvReac Type Severity Reaction Status Date / Time No Known Allergies Allergy Verified 04/23/21 11:34 Home Meds: Home Meds Ondansetron [Zofran ODT] 4 mg PO Q6H PRN #20 tab.dis 03/28/15 [Rx] Gabapentin [Neurontin] 2 cap PO BEDTIME 01/31/16 [History] hydrOXYzine HCl [Atarax] 25 mg PO TID 01/31/16 [History] oxyCODONE HCl [Oxycodone HCl] 0.5 - 1 tab PO Q6H PRN 01/31/16 [History] Butalb/Acetaminophen/Caffeine [Rhsqft-[id number]-Zmvi 50-325-40] 2 tab PO Q6HR 07/14/20 [History] Pregabalin [Lyrica] 300 mg PO DAILY 07/14/20 [History] oxyCODONE HCl/Acetaminophen [Oxycodone-Acetaminophen 10-300] 1 each PO BEDTIME PRN #4 tablet 04/23/21 [Rx] Past Medical History HEENT History: Reports: None Cardiovascular History: Reports: Arrhythmia Other Cardiovascular History: hx of arrythmia after feeding tube insertion Respiratory History: Reports: None Gastrointestinal History: Reports: GERD Genitourinary History: Reports: None [employer] History: Reports: Musculoskeletal History: Reports: Back Pain, Chronic Other Musculoskeletal History: being checked for Fibromyalgia Neurological History: Reports: Migraines Psychiatric History: Reports: Anxiety, Depression Endocrine/Metabolic History: Reports: None Hematologic History: Reports: None Immunologic History: Reports: None Oncologic (Cancer) History: Reports: None Dermatologic History: Reports: None - Infectious Disease History Infectious Disease History: Reports: None - Past Surgical History Head Surgeries/Procedures: Reports: None HEENT Surgical History: Reports: None Cardiovascular Surgical History: Reports: None Respiratory Surgical History: Reports: None GI Surgical History: Reports: Bariatric Procedure, Cholecystectomy, EGD, Esophageal Dilatation, Other (See Below) Other GI Surgeries/Procedures: Gastrotomy tube Female Surgical History: Reports: Section, Hysterectomy, Tubal Ligation Endocrine Surgical History: Reports: None Neurological Surgical History: Reports: None Musculoskeletal Surgical History: Reports: Arthroscopic Knee, Carpal Tunnel Oncologic Surgical History: Reports: None Dermatological Surgical History: Reports: None Social & Family History - Family History Family Medical History: No Pertinent Family History - Tobacco Use Tobacco Use Status *Q: Never Tobacco User Second Hand Smoke Exposure: No - Caffeine Use Caffeine Use: Reports: Coffee - Recreational Drug Use Recreational Drug Use: No ED ROS GENERAL - Review of Systems Review Of Systems: Comprehensive ROS is negative, except as noted in HPI. ED EXAM, GENERAL - Physical Exam Exam: See Below Free Text/Narrative:: My physical exam is in the HPI Course - Vital Signs Text/Narrative:: 1216 I called the primary doctor to see what to do about the chronic pain. Review of the prescription management monitoring program shows that on the fifth of this month she was given a 30-day supply of 120 oxy[address] Allen. [id number] the patient was discussed with Dr. Allen's nurse. They will refill her pain medicine on the fourth of this month if she goes to the pharmacy and send us a request there. Last Recorded V/S: Last Vital Signs Temp 36.5 C 04/23/21 11:35 Pulse 93 04/23/21 11:35 Resp 17 04/23/21 11:35 BP 119/68 04/23/21 11:35 Pulse Ox 99 04/23/21 11:35 - Orders/Labs/Meds Labs: Laboratory Tests 04/23/21 04/23/21 04/23/21 Range/Units 11:42 11:42 12:00 WBC 7.09 (4.0-11.0) K/uL RBC 4.77 (4.30-5.90) M/uL Hgb 14.4 (12.0-16.0) g/dL Hct 42.0 (36.0-46.0) % MCV 88.1 (80.0-98.0) fL MCH 30.2 (27.0-32.0) pg MCHC 34.3 (31.0-37.0) g/dL RDW Std Deviation 40.0 (28.0-62.0) fl RDW Coeff of Jose Juan 13 (11.0-15.0) % Plt Count 314 (150-400) K/uL MPV 9.70 (7.40-12.00) fL Neut % (Auto) 70.1 (48.0-80.0) % Lymph % (Auto) 23.1 (16.0-40.0) % Sharp % (Auto) 5.4 (0.0-15.0) % Eos % (Auto) 0.8 (0.0-7.0) % Baso % (Auto) 0.6 (0.0-1.5) % Neut # (Auto) 5.0 (1.4-5.7) K/uL Lymph # (Auto) 1.6 (0.6-2.4) K/uL Sharp # (Auto) 0.4 (0.0-0.8) K/uL Eos # (Auto) 0.1 (0.0-0.7) K/uL Baso # (Auto) 0.0 (0.0-0.1) K/uL Nucleated RBC % 0.0 /100WBC Nucleated RBCs # 0 K/uL INR 1.19 APTT 24.8 (18.6-31.3) SEC Sodium 139 (136-145) mmol/L Potassium 4.5 (3.5-5.1) mmol/L Chloride 104 (98-107) mmol/L Carbon Dioxide 29.3 (21.0-32.0) mmol/L BUN 13 (7.0-18.0) mg/dL Creatinine 0.9 (0.6-1.0) mg/dL Est Cr Clr Drug Dosing 66.13 mL/min Estimated GFR (MDRD) > 60.0 ml/min Glucose 92 (74-106) mg/dL Calcium 9.4 (8.5-10.1) mg/dL Total Bilirubin 0.8 (0.2-1.0) mg/dL AST 21 (15-37) IU/L ALT 16 (14-63) IU/L Alkaline Phosphatase 90 (46-116) U/L Total Protein 6.4 (6.4-8.2) g/dL Albumin 3.2 L (3.4-5.0) g/dL Globulin 3.2 (2.6-4.0) g/dL Albumin/Globulin Ratio 1.0 (0.9-1.6) Lipase 128 (73-393) U/L Urine Color Urine Appearance Urine pH (5.0-8.0) Ur Specific [place] (1.001-1.035) Urine Protein (NEGATIVE) mg/dL Urine Glucose (UA) (NEGATIVE) mg/dL Urine Ketones (NEGATIVE) mg/dL Urine Occult Blood (NEGATIVE) Urine Nitrite (NEGATIVE) Urine Bilirubin (NEGATIVE) Urine Urobilinogen (<2.0) EU/dL Ur Leukocyte Esterase (NEGATIVE) Urine HCG, Qual (NEGATIVE) 04/23/21 04/23/21 Range/Units 13:10 13:10 WBC (4.0-11.0) K/uL RBC (4.30-5.90) M/uL Hgb (12.0-16.0) g/dL Hct (36.0-46.0) % MCV (80.0-98.0) fL MCH (27.0-32.0) pg MCHC (31.0-37.0) g/dL RDW Std Deviation (28.0-62.0) fl RDW Coeff of Jose Juan (11.0-15.0) % Plt Count (150-400) K/uL MPV (7.40-12.00) fL Neut % (Auto) (48.0-80.0) % Lymph % (Auto) (16.0-40.0) % Sharp % (Auto) (0.0-15.0) % Eos % (Auto) (0.0-7.0) % Baso % (Auto) (0.0-1.5) % Neut # (Auto) (1.4-5.7) K/uL Lymph # (Auto) (0.6-2.4) K/uL Sharp # (Auto) (0.0-0.8) K/uL Eos # (Auto) (0.0-0.7) K/uL Baso # (Auto) (0.0-0.1) K/uL Nucleated RBC % /100WBC Nucleated RBCs # K/uL INR APTT (18.6-31.3) SEC Sodium (136-145) mmol/L Potassium (3.5-5.1) mmol/L Chloride (98-107) mmol/L Carbon Dioxide (21.0-32.0) mmol/L BUN (7.0-18.0) mg/dL Creatinine (0.6-1.0) mg/dL Est Cr Clr Drug Dosing mL/min Estimated GFR (MDRD) ml/min Glucose (74-106) mg/dL Calcium (8.5-10.1) mg/dL Total Bilirubin (0.2-1.0) mg/dL AST (15-37) IU/L ALT (14-63) IU/L Alkaline Phosphatase (46-116) U/L Total Protein (6.4-8.2) g/dL Albumin (3.4-5.0) g/dL Globulin (2.6-4.0) g/dL Albumin/Globulin Ratio (0.9-1.6) Lipase (73-393) U/L Urine Color YELLOW Urine Appearance CLEAR Urine pH 6.0 (5.0-8.0) Ur Specific [place] <= 1.005 (1.001-1.035) Urine Protein NEGATIVE (NEGATIVE) mg/dL Urine Glucose (UA) NEGATIVE (NEGATIVE) mg/dL Urine Ketones NEGATIVE (NEGATIVE) mg/dL Urine Occult Blood NEGATIVE (NEGATIVE) Urine Nitrite NEGATIVE (NEGATIVE) Urine Bilirubin NEGATIVE (NEGATIVE) Urine Urobilinogen 1.0 (<2.0) EU/dL Ur Leukocyte Esterase NEGATIVE (NEGATIVE) Urine HCG, Qual NEGATIVE (NEGATIVE) Meds: Medications Discontinued Medications Generic Name Dose Route Start Last Admin Trade Name Freq PRN Reason Stop Dose Admin Oxycodone HCl 10 mg 04/23/21 13:02 04/23/21 13:09 Oxycodone 5 Mg Tab PO 04/23/21 13:03 10 mg ONETIME ONE Administration Departure - Departure Time of Disposition: 13:45 Disposition: Home, Self-Care 01 Condition: Good Clinical Impression: Chronic abdominal pain, Chronic headache, Frequent falls, Superficial bruising of lower leg - Discharge Information Instructions: Fall Prevention in the Home, Adult, [id number], Abdominal Pain, Adult, [id number], General Headache Without Cause Referrals: Ronald Allen MD [Primary Care Provider] - Forms: ED Department Discharge Additional Instructions: Your doctor will refill your prescription if you requested through the pharmacy and expected on the fourth of this month and no center. I am writing a prescription for you to have a pain pill to take each the next 3 evenings and you received some additional pain medicine in the emergency department. Ice packs to the bruises should be helpful. [facility] - Neurology Professional Building [address] [place] [address], [address] [place] [address] The following information is given to patients seen in the emergency department who are being discharged to home. This information is to outline your options for follow-up care. We provide all patients seen in our emergency department with a follow-up referral. The need for follow-up, as well as the timing and circumstances, are variable depending upon the specifics of your emergency department visit. If you don't have a primary care physician on staff, we will provide you with a referral. We always advise you to contact your personal physician following an emergency department visit to inform them of the circumstance of the visit and for follow-up with them and/or the need for any referrals to a consulting specialist. The emergency department will also refer you to a specialist when appropriate. This referral assures that you have the opportunity for follow-up care with a specialist. All of these measure are taken in an effort to provide you with optimal care, which includes your follow-up. Under all circumstances we always encourage you to contact your private physician who remains a resource for coordinating your care. When calling for follow-up care, please make the office aware that this follow-up is from your recent emergency room visit. If for any reason you are refused follow-up, please contact the [facility] Emergency Department at and asked to speak to the emergency department charge nurse. Sepsis Event Note (ED) - Evaluation Sepsis Screening Result: No Definite Risk - Focused Exam Vital Signs: Vital Signs Temp Pulse Resp BP Pulse Ox 04/23/21 11:35 36.5 C 93 17 119/68 99
[2021-04-23 12:08] LABS: BLOOD UREA NITROGEN,BUN 13 mg/dL (7.0-18.0); CARBON DIOXIDE,CO2 29.3 mmol/L (21.0-32.0); CHLORIDE,CL 104 mmol/L (98-107); GLUCOSE RANDOM 92 mg/dL (74-106); LIPASE 128 U/L (73-393); POTASSIUM,K 4.5 mmol/L (3.5-5.1); SODIUM,NA 139 mmol/L (136-145)
[2021-04-23] MEDS ORDERED: oxyCODONE 5 MG Tab PO ONE (13:02)
[2021-04-23 14:05] VITALS: BP 123/64; PULSE 81
== END 2021-04-23 14:05 | disposition home or self-care (01) ==
LOC: MW.ED 11:04
DX: R10.32 Left lower quadrant pain (principal); R51.9 Headache, unspecified; G89.29 Other chronic pain; M79.81 Nontraumatic hematoma of soft tissue; Z91.14 Patient's other noncompliance with medication regimen; Z91.81 History of falling
CPT/HCPCS: 36415; 80053; 81003; 81025; 83690; 85025; 85610; 85730; 99284; A9270; 99283

== ENCOUNTER 2021-05-16 11:32 | Emergency (ER) | payer MEDICARE, MEDICAID ==
[2021-05-16] MEDS ORDERED: Sodium Chloride 0.9% 1,000 ML IV ONE (12:02)
[2021-05-16] MEDS ORDERED: HYDROmorphone 1 MG/ML Syringe IVPUSH ONE (12:02)
[2021-05-16] MEDS ORDERED: Ondansetron 4 MG/2 ML SDV IVPUSH ONE (12:02)
--- NOTE | 2021-05-16 12:06 | EDM.PDOC ---
ED HPI GENERAL MEDICAL PROBLEM - General Chief Complaint: Abdominal Pain Stated Complaint: L SIDE PAIN Time Seen by Provider: 05/16/21 11:36 Source of Information: Reports: Patient History Limitations: Reports: No Limitations - History of Present Illness INITIAL COMMENTS - FREE TEXT/NARRATIVE: HISTORY AND PHYSICAL: History of present illness: Patient is a 45-year-old female who presents to the emergency room with complaints of left lower quadrant pain, nausea and vomiting. She states she has had chronic abdominal pain for the past 7 years in which she has not found a significant reason for this. She believes her abdominal pain started after she had a gastric bypass sleeve done and has had multiple exploratory surgeries. She is on a pain contract and has oxycodone for her chronic pain. States the oxycodone has not been "cutting it". Patient denies any fever, chills, headache, change in vision, syncope or near syncope. Denies any chest pain, back pain, shortness of breath or cough. Denies any diarrhea, constipation or dysuria. Has not noted any blood in urine or stool. History of hysterectomy, no concern for . Patient has been eating and drinking appropriately. Review of systems: As per history of present illness and below otherwise all systems reviewed and negative. Past medical history: As per history of present illness and as reviewed below otherwise noncontributory. Surgical history: As per history of present illness and as reviewed below otherwise noncontributory. Social history: See social history for further information Family history: As per history of present illness and as reviewed below otherwise noncontributory. Physical exam: General: Well developed and well nourished 45-year-old female. Alert and orientated x 3. Nontoxic in appearance, tearful and anxious appearing. Vital signs are stable and have been reviewed by me. Nursing notes were reviewed. HEENT: Atraumatic, normocephalic, pupils equal and reactive bilaterally, negative for conjunctival pallor or scleral icterus, mucous membranes moist, trachea midline. No drooling or trismus noted. No meningeal signs. No hot potato voice noted. Lungs: Clear to auscultation bilaterally. No wheezes, rales, or rhonchi. Chest nontender. Normal work of breathing, no accessory muscles used. Heart: S1S2, regular rate and rhythm without overt murmur, gallops, or rubs. No JVD. No peripheral edema Abdomen: Soft, nondistended, left lower quadrant tenderness with palpation. Normoactive bowel sounds. Negative for masses or costovertebral tenderness. Skin: Intact, warm, dry. No lesions or rashes noted. Hematologic: No petechiae or purpra. Mucosa appropriate color and normal nail bed color and refill. Extremities: Atraumatic, moves all extremities per self without difficulty or deficits, negative for cords or calf pain. Neurovascular unremarkable. Neuro: Awake, alert, oriented. Cranial nerves II through XII unremarkable. Cerebellum unremarkable. Motor and sensory unremarkable throughout. Exam nonfocal. Psychiatric: Mood and affect are appropriate. Normal thought process. Answering questions appropriately. Notes: *This patient was seen and evaluated during the 2019 SARS-CoV-2 novel coronavirus pandemic period. Community viral transmission is ongoing at time of this encounter and the emergency department is operating under pandemic response procedures. Patient is a 45-year-old female who presents to the emergency room with complaints of acute on chronic abdominal pain. Says she has been dealing with chronic abdominal pain for the past 7 years and occasionally has flareups where she requires further pain management. She currently is taking oxycodone and believes it is not working. We will do basic lab work, CT of the abdomen and pelvis due to her multiple GI history and give her IV fluid and pain medication. Patient is agreeable to plan of care. Lab work is unremarkable. Patient CT shows diffuse thickening of the sigmoid colon. Findings nonspecific. Diverticulitis and colitis be considered. Diffuse colonic fecal retention. Cholecystectomy with intra and extrahepatic biliary duct dilatation. Findings may relate to reservoir affect. Hepatic steatosis. Vital signs remained stable. I have talked with the patient about today's findings, in addition to providing specific details for plan of care. Reassessment at the time of disposition demonstrates that the patient is in no acute distress. Encouraged her to follow-up with Dr. Allen. She states she does have an appointment with him next week. The patient is stable for discharge, counseling was provided and we discussed in great detail signs and symptoms that would prompt them to return to the Emergency Department. Medication, follow up and supportive care measures were reviewed and discussed. Voices understanding and is agreeable to plan of care. Denies any further questions or concerns at this time. Diagnostics: CBC, CMP, Lipase, UA, CT abd/pelvis Therapeutics: IV fluid, Dilaudid, Zofran Prescription: None Impression: Acute on chronic abdominal pain Plan: 1. You were evaluated today on an emergent basis. Your lab work and CT scan are unremarkable. Please follow up with any of your primary care providers who are already involved with your health care needs. If your symptoms should worsen, new symptoms develop or any of the signs and symptoms we discussed should arise please return to the emergency room or call 911 (if needed). 2. You can alternate Tylenol and ibuprofen as needed for pain and fever management. Take your home medications as directed. 3. We encourage you to follow up with your primary care provider and/or recommended specialist in the next few days for re-evaluation and further care/management. Definitive disposition and diagnosis as appropriate pending reevaluation and review of above. Left lower quadrant Pain Score (Numeric/FACES): 10 - Related Data Allergies Allergy/AdvReac Type Severity Reaction Status Date / Time No Known Allergies Allergy Verified 05/16/21 12:13 Home Meds: Home Meds Ondansetron [Zofran ODT] 4 mg PO Q6H PRN #20 tab.dis 03/28/15 [Rx] Gabapentin [Neurontin] 2 cap PO BEDTIME 01/31/16 [History] hydrOXYzine HCl [Atarax] 25 mg PO TID 01/31/16 [History] oxyCODONE HCl [Oxycodone HCl] 0.5 - 1 tab PO Q6H PRN 01/31/16 [History] Butalb/Acetaminophen/Caffeine [Wndxgy-Hyemtaex-Rycg 50-325-40] 2 tab PO Q6HR 07/14/20 [History] Pregabalin [Lyrica] 300 mg PO DAILY 07/14/20 [History] oxyCODONE HCl/Acetaminophen [Oxycodone-Acetaminophen 10-300] 1 each PO BEDTIME PRN #4 tablet 04/23/21 [Rx] oxyCODONE HCl/Acetaminophen [Oxycodone-Acetaminophen 10-300] 1 each PO BEDTIME PRN #4 tablet 04/23/21 [Rx] Past Medical History HEENT History: Reports: None Cardiovascular History: Reports: Arrhythmia Other Cardiovascular History: hx of arrythmia after feeding tube insertion Respiratory History: Reports: None Gastrointestinal History: Reports: GERD Genitourinary History: Reports: None [employer] History: Reports: Musculoskeletal History: Reports: Back Pain, Chronic Other Musculoskeletal History: being checked for Fibromyalgia Neurological History: Reports: Migraines Psychiatric History: Reports: Anxiety, Depression Endocrine/Metabolic History: Reports: None Hematologic History: Reports: None Immunologic History: Reports: None Oncologic (Cancer) History: Reports: None Dermatologic History: Reports: None - Infectious Disease History Infectious Disease History: Reports: None - Past Surgical History Head Surgeries/Procedures: Reports: None HEENT Surgical History: Reports: None Cardiovascular Surgical History: Reports: None Respiratory Surgical History: Reports: None GI Surgical History: Reports: Bariatric Procedure, Cholecystectomy, EGD, Esophageal Dilatation, Other (See Below) Other GI Surgeries/Procedures: Gastrotomy tube Female Surgical History: Reports: Section, Hysterectomy, Tubal Ligation Endocrine Surgical History: Reports: None Neurological Surgical History: Reports: None Musculoskeletal Surgical History: Reports: Arthroscopic Knee, Carpal Tunnel Oncologic Surgical History: Reports: None Dermatological Surgical History: Reports: None Social & Family History - Family History Family Medical History: No Pertinent Family History - Caffeine Use Caffeine Use: Reports: Coffee ED ROS GENERAL - Review of Systems Review Of Systems: Comprehensive ROS is negative, except as noted in HPI. ED EXAM, GI/ABD - Physical Exam Exam: See Below (See dictation) Course - Vital Signs Last Recorded V/S: Last Vital Signs Temp 96.5 F L 05/16/21 12:14 Pulse 92 05/16/21 12:14 Resp 18 05/16/21 12:14 BP 105/74 05/16/21 12:14 Pulse Ox 96 05/16/21 12:14 - Orders/Labs/Meds Labs: Laboratory Tests 05/16/21 05/16/21 05/16/21 Range/Units 12:00 12:00 13:14 WBC 5.82 (4.0-11.0) K/uL RBC 4.61 (4.30-5.90) M/uL Hgb 13.9 (12.0-16.0) g/dL Hct 40.3 (36.0-46.0) % MCV 87.4 (80.0-98.0) fL MCH 30.2 (27.0-32.0) pg MCHC 34.5 (31.0-37.0) g/dL RDW Std Deviation 39.7 (28.0-62.0) fl RDW Coeff of Jose Juan 13 (11.0-15.0) % Plt Count 351 (150-400) K/uL MPV 9.10 (7.40-12.00) fL Neut % (Auto) 68.1 (48.0-80.0) % Lymph % (Auto) 25.8 (16.0-40.0) % Mclennan % (Auto) 4.8 (0.0-15.0) % Eos % (Auto) 1.0 (0.0-7.0) % Baso % (Auto) 0.3 (0.0-1.5) % Neut # (Auto) 4.0 (1.4-5.7) K/uL Lymph # (Auto) 1.5 (0.6-2.4) K/uL Mclennan # (Auto) 0.3 (0.0-0.8) K/uL Eos # (Auto) 0.1 (0.0-0.7) K/uL Baso # (Auto) 0.0 (0.0-0.1) K/uL Sodium 141 (136-145) mmol/L Potassium 4.1 (3.5-5.1) mmol/L Chloride 105 (98-107) mmol/L Carbon Dioxide 29.1 (21.0-32.0) mmol/L BUN 14 (7.0-18.0) mg/dL Creatinine 0.9 (0.6-1.0) mg/dL Est Cr Clr Drug Dosing 66.13 mL/min Estimated GFR (MDRD) > 60.0 ml/min Glucose 91 (74-106) mg/dL Calcium 8.9 (8.5-10.1) mg/dL Total Bilirubin 0.7 (0.2-1.0) mg/dL AST 21 (15-37) IU/L ALT 17 (14-63) IU/L Alkaline Phosphatase 98 (46-116) U/L Total Protein 6.3 L (6.4-8.2) g/dL Albumin 3.2 L (3.4-5.0) g/dL Globulin 3.1 (2.6-4.0) g/dL Albumin/Globulin Ratio 1.0 (0.9-1.6) Lipase 65 L (73-393) U/L Urine Color YELLOW Urine Appearance CLEAR Urine pH 5.5 (5.0-8.0) Ur Specific Albright <= 1.005 (1.001-1.035) Urine Protein NEGATIVE (NEGATIVE) mg/dL Urine Glucose (UA) NEGATIVE (NEGATIVE) mg/dL Urine Ketones NEGATIVE (NEGATIVE) mg/dL Urine Occult Blood NEGATIVE (NEGATIVE) Urine Nitrite NEGATIVE (NEGATIVE) Urine Bilirubin NEGATIVE (NEGATIVE) Urine Urobilinogen 0.2 (<2.0) EU/dL Ur Leukocyte Esterase NEGATIVE (NEGATIVE) Meds: Medications Discontinued Medications Generic Name Dose Route Start Last Admin Trade Name Freq PRN Reason Stop Dose Admin Hydromorphone HCl 1 mg 05/16/21 12:02 05/16/21 12:10 Hydromorphone 1 Mg/Ml Syringe IVPUSH 05/16/21 12:03 1 mg ONETIME ONE Administration Sodium Chloride 1,000 mls @ 999 mls/hr 05/16/21 12:02 05/16/21 12:10 Normal Saline IV 05/16/21 13:02 999 mls/hr STAT ONE Administration Iopamidol 85 ml 05/16/21 12:40 05/16/21 12:41 Iopamidol 755 Mg/Ml 500 Ml Multipack Bottle IVPUSH 05/16/21 12:41 85 ml ONETIME STA Administration Ondansetron HCl 4 mg 05/16/21 12:02 05/16/21 12:09 Ondansetron 4 Mg/2 Ml Sdv IVPUSH 05/16/21 12:03 4 mg ONETIME ONE Administration Departure - Departure Time of Disposition: 13:28 Disposition: Home, Self-Care 01 Clinical Impression: Chronic abdominal pain - Discharge Information Instructions: Chronic Pain, Adult Referrals: Ronald Allen MD [Primary Care Provider] - Forms: ED Department Discharge Additional Instructions: The following information is given to patients seen in the emergency department who are being discharged to home. This information is to outline your options for follow-up care. We provide all patients seen in our emergency department with a follow-up referral. The need for follow-up, as well as the timing and circumstances, are variable depending upon the specifics of your emergency department visit. If you don't have a primary care physician on staff, we will provide you with a referral. We always advise you to contact your personal physician following an emergency department visit to inform them of the circumstance of the visit and for follow-up with them and/or the need for any referrals to a consulting specialist. The emergency department will also refer you to a specialist when appropriate. This referral assures that you have the opportunity for follow-up care with a specialist. All of these measure are taken in an effort to provide you with optimal care, which includes your follow-up. Under all circumstances we always encourage you to contact your private physician who remains a resource for coordinating your care. When calling for follow-up care, please make the office aware that this follow-up is from your recent emergency room visit. If for any reason you are refused follow-up, please contact the [facility] Emergency Department at and asked to speak to the emergency department charge nurse. [facility] [address] [place] [address] [place] [address] Thank you for choosing the [facility] emergency department in [place] for your medical needs today. It was a pleasure caring for you. Today you were seen in the emergency department for chronic abdominal pain. 1. You were evaluated today on an emergent basis. Your lab work and CT scan are unremarkable. Please follow up with any of your primary care providers who are already involved with your health care needs. If your symptoms should worsen, new symptoms develop or any of the signs and symptoms we discussed should arise please return to the emergency room or call 911 (if needed). 2. You can alternate Tylenol and ibuprofen as needed for pain and fever management. Take your home medications as directed. 3. We encourage you to follow up with your primary care provider and/or recommended specialist in the next few days for re-evaluation and further care/management. Sepsis Event Note (ED) - Focused Exam Vital Signs: Vital Signs Temp Pulse Resp BP Pulse Ox 05/16/21 12:14 96.5 F L 92 18 105/74 96
[2021-05-16 12:26] LABS: BLOOD UREA NITROGEN,BUN 14 mg/dL (7.0-18.0); CARBON DIOXIDE,CO2 29.1 mmol/L (21.0-32.0); CHLORIDE,CL 105 mmol/L (98-107); GLUCOSE RANDOM 91 mg/dL (74-106); LIPASE 65 U/L (73-393); POTASSIUM,K 4.1 mmol/L (3.5-5.1); SODIUM,NA 141 mmol/L (136-145)
[2021-05-16] MEDS ORDERED: Iopamidol 755 MG/ML 500 ML Multipack Bottle IVPUSH STA (12:40)
--- NOTE | 2021-05-16 13:22 | CT ---
INDICATION: Left lower quadrant pain TECHNIQUE: CT abdomen and pelvis acquired with IV contrast. 85 cc Isovue 370 COMPARISON: 07/14/2020 FINDINGS: Lower chest: Unremarkable. Liver: Hepatic steatosis. Spleen: Unremarkable. Pancreas: Unremarkable. Gallbladder and bile ducts: Cholecystectomy. Intra and extra biliary duct dilatation most likely related to reservoir effect. Kidneys: Unremarkable. Adrenal glands: Unremarkable. GI tract: Diffuse colonic fecal retention. Mild thickening of the sigmoid colon. Findings are nonspecific. Evidence of gastric bypass surgery. Vascular structures: Unremarkable. Lymph nodes: Unremarkable. Miscellaneous: Unremarkable. No free air or significant free fluid. Pelvic Organs: Unremarkable. Bones: Unremarkable for age. IMPRESSION: Diffuse thickening of the sigmoid colon. Findings nonspecific. Diverticulitis and colitis be considered. Diffuse colonic fecal retention. Cholecystectomy with intra and extrahepatic biliary duct dilatation. Findings may relate to reservoir affect. Hepatic steatosis. Please note that all CT scans at this facility use dose modulation, iterative reconstruction, and/or weight-based dosing when appropriate to reduce radiation dose to as low as reasonably achievable. Dictated by Ayad Sanderson MD @ 05/16/2021 1:21:[address] Ayad Sanderson @ May 16 2021 1:21PM
[2021-05-16 13:38] VITALS: BP 127/55; PULSE 66
== END 2021-05-16 13:38 | disposition home or self-care (01) ==
LOC: MW.ED 11:32
DX: G89.29 Other chronic pain (principal); R10.32 Left lower quadrant pain
CPT/HCPCS: 36415; 74177; 80053; 81003; 83690; 85025; 96374; 96375; 99284; J1170; J2405; J7030; Q9967

== ENCOUNTER 2021-12-13 15:55 | Emergency (ER) | payer MEDICARE, MEDICAID ==
[2021-12-13] MEDS ORDERED: Ketorolac 60 MG/2 ML SDV IM ONE (16:12)
[2021-12-13] MEDS ORDERED: Lidocaine 5% 700 MG Patch TOP STA (16:12)
[2021-12-13] MEDS ORDERED: Orphenadrine 60 MG/2 ML Inj IM ONE (16:12)
[2021-12-13 16:58] VITALS: BP 117/83; PULSE 120
== END 2021-12-13 16:55 | disposition home or self-care (01) ==
LOC: MW.ED 15:55
DX: M54.41 Lumbago with sciatica, right side (principal)
CPT/HCPCS: 96372; 99283; A9270; J1885; J2360

== ENCOUNTER 2022-06-05 14:22 | Emergency (ER) | payer MEDICARE, MEDICAID ==
[2022-06-05] MEDS ORDERED: Ondansetron 4 MG Tab.DIS PO ONE (14:37)
[2022-06-05 16:51] VITALS: BP 122/52; PULSE 62
== END 2022-06-05 16:49 | disposition home or self-care (01) ==
LOC: MW.ED 14:22
DX: S09.90XA Unspecified injury of head, initial encounter (principal); Z79.899 Other long term (current) drug therapy; Z90.49 Acquired absence of other specified parts of digestive tract; Z90.710 Acquired absence of both cervix and uterus; W01.10XA Fall on same level from slipping, tripping and stumbling with subsequent striking against unspecified object, initial encounter
CPT/HCPCS: 70450; 99283; A9270; 99284

== ENCOUNTER 2022-08-28 22:04 | Emergency (ER) | payer MEDICARE, MEDICAID ==
[2022-08-28] MEDS ORDERED: Sodium Chloride 0.9% 1,000 ML IV ONE (22:35)
[2022-08-28] MEDS ORDERED: Pantoprazole 80 MG in Sodium Chloride 0.9% 20 ML IV ONE (22:40)
[2022-08-28] MEDS ORDERED: Ondansetron 4 MG/2 ML SDV IVPUSH ONE (23:37)
[2022-08-28] MEDS ORDERED: Morphine 4 MG/ML Syringe IVPUSH ONE (23:39)
[2022-08-28] MEDS ORDERED: Iopamidol 755 Mg/ML 100 ML Bottle IV ONE (23:59)
[2022-08-29] MEDS ORDERED: Ondansetron 4 MG/2 ML SDV IVPUSH ONE ×2 (01:14→01:55)
[2022-08-29] MEDS ORDERED: HYDROmorphone 1 MG/ML Syringe IV ONE (01:15)
== END 2022-08-29 02:45 ==
LOC: MW.ED 22:04
DX: K28.5 Chronic or unspecified gastrojejunal ulcer with perforation (principal)
CPT/HCPCS: 74177; 96361; 96374; 96375; 96376; 99284; C9113; J2270; J2405; J7030; Q9967

== ENCOUNTER 2024-01-04 10:54 | Emergency (ER) | payer MEDICAID ==
[2024-01-04] MEDS: Sodium Chloride 0.9% 10 ML Syringe FLUSH PRN (12:32)
[2024-01-04] MEDS: Sodium Chloride 0.9% 2.5 ML Syringe FLUSH PRN (12:32)
[2024-01-04 12:38] LABS: BASOPHILS ABSOLUTE AUTO 0.06 K/uL (0.00-0.20); BASOPHILS PERCENT AUTO 0.7 % (0.0-1.0); EOSINOPHILS ABSOLUTE AUTO 0.04 K/uL (0.00-0.45); EOSINOPHILS PERCENT AUTO 0.5 % (0.0-6.0); HEMATOCRIT 37.6 % (37.0-47.0); HEMOGLOBIN 11.9 g/dL (12.0-16.0); IMMATURE GRAN ABSOLUTE AUTO 0.02 K/uL (0.00-0.05); IMMATURE GRAN PERCENT AUTO 0.2 % (0.0-0.4); LYMPHOCYTES ABSOLUTE AUTO 2.04 K/uL (1.00-4.80); LYMPHOCYTES PERCENT AUTO 24.7 % (24.0-44.0); MEAN CORPUSCULAR HEMOGLOBIN 24.5 pg (28.0-32.0); MEAN CORPUSCULAR HGB CONC 31.6 g/dL (32.0-36.0); MEAN CORPUSCULAR VOLUME 77.4 fL (83.0-99.0); MEAN PLATELET VOLUME 8.5 fL (9.4-12.3); MONOCYTES ABSOLUTE AUTO 0.36 K/uL (0.00-0.80); MONOCYTES PERCENT AUTO 4.4 % (0.0-8.0); NEUTROPHILS ABSOLUTE AUTO 5.73 K/uL (1.80-7.70); NEUTROPHILS PERCENT AUTO 69.5 % (41.0-71.0); PLATELET COUNT,PLT 558 K/uL (150-400); RED BLOOD CELL COUNT 4.86 M/uL (4.10-5.30); WHITE BLOOD CELL COUNT,WBC 8.25 K/uL (3.9-11.3)
[2024-01-04 12:52] LABS: APPEARANCE,URINE CLEAR; BILIRUBIN,URINE NEGATIVE (NEGATIVE); COLOR,URINE YELLOW; GLUCOSE,URINE NEGATIVE (NEGATIVE); KETONES,URINE NEGATIVE (NEGATIVE); LEUKOCYTE ESTERASE,URINE NEGATIVE (NEGATIVE); NITRITE,URINE NEGATIVE (NEGATIVE); OCCULT BLOOD,URINE NEGATIVE (NEGATIVE); PROTEIN,URINE NEGATIVE (NEGATIVE)
[2024-01-04 12:58] LABS: A/G RATIO 0.9 (0.9-1.6); ACETAMINOPHEN 57.4 ug/mL; BILIRUBIN TOTAL 0.3 mg/dL (0.2-1.0); CALCIUM 8.6 mg/dL (8.5-10.1); CARBON DIOXIDE,CO2 27.1 mmol/L (21.0-32.0); CREATININE 0.9 mg/dL (0.6-1.0); EST CRCL DRUG DOSING (CG) 60.76 mL/min; POTASSIUM,K 4.6 mmol/L (3.5-5.1); PROTEIN TOTAL,TP 6.4 g/dL (6.4-8.2); SALICYLATE 1.3 mg/dL (0.0-20.0)
[2024-01-04] MEDS: Ondansetron 4 MG/2 ML SDV IVPUSH STA (13:07)
[2024-01-04] MEDS: Sodium Chloride 0.9% 1,000 ML IV STA (13:07)
[2024-01-04] MEDS: Ketorolac 30 MG/ML SDV IVPUSH STA (13:07)
[2024-01-04] MEDS: Morphine 4 MG/ML Syringe IVPUSH STA ×2 (15:57→18:24)
[2024-01-04 18:02] LABS: INR 1.14 (0.86-1.11)
[2024-01-04 18:29] LABS: A/G RATIO 0.9 (0.9-1.6); ACETAMINOPHEN 8.8 ug/mL; ALBUMIN 2.7 g/dL (3.4-5.0); BILIRUBIN DIRECT 0.1 mg/dL (0.0-0.5); BILIRUBIN TOTAL 0.3 mg/dL (0.2-1.0); CALCIUM 8.3 mg/dL (8.5-10.1); CREATININE 0.8 mg/dL (0.6-1.0); EST CRCL DRUG DOSING (CG) 68.36 mL/min; POTASSIUM,K 4.2 mmol/L (3.5-5.1); PROTEIN TOTAL,TP 5.8 g/dL (6.4-8.2)
[2024-01-04 19:47] VITALS: BP 125/75; PULSE 87
== END 2024-01-04 19:46 | disposition home or self-care (01) ==
LOC: MW.ED 10:54
DX: T39.1X1A Poisoning by 4-Aminophenol derivatives, accidental (unintentional), initial encounter (principal); R10.32 Left lower quadrant pain; Z90.49 Acquired absence of other specified parts of digestive tract; Z90.710 Acquired absence of both cervix and uterus; Z79.899 Other long term (current) drug therapy
CPT/HCPCS: 36415; 74018; 80053; 80143; 80179; 81003; 82248; 83690; 84703; 85025; 85610; 96361; 96374; 96375; 96376; 99284; J1885; J2270; J2405; J3490; J7030